=== PATIENT | female | born 1985 | race Caucasian/White ===

== ENCOUNTER 2020-07-02 23:40 | Inpatient (IN) | payer BC ==
[2020-07-03] MEDS ORDERED: Lidocaine 1.5% with EPINEPHrine 1:200,000 5 ML Amp ONE
[2020-07-03] MEDS ORDERED: Nalbuphine 10 MG/ML Syringe IVPUSH PRN (01:32)
[2020-07-03] MEDS ORDERED: Calcium Carbonate 500 MG Tab.Chew PO PRN (01:32)
[2020-07-03] MEDS ORDERED: Ondansetron 4 MG/2 ML SDV IVPUSH PRN (01:32)
[2020-07-03] MEDS ORDERED: Sodium Chloride 0.9% 10 ML Syringe FLUSH PRN (01:32)
[2020-07-03] MEDS ORDERED: Oxytocin/Lactated Ringers 10 UNIT/1,000 ML BAG IV SCH ×2 (01:45)
[2020-07-03] MEDS: Lactated Ringers 1,000 ML IV SCH ×3 (01:47→10:17)
[2020-07-03] MEDS ORDERED: diphenhydrAMINE 50 MG/ML SDV IVPUSH PRN (01:59)
[2020-07-03] MEDS ORDERED: fentaNYL 100 MCG/2 ML SDV EPIDUR PRN (01:59)
[2020-07-03] MEDS ORDERED: ePHEDrine 50 MG/ML SDV IVPUSH PRN (01:59)
--- NOTE | 2020-07-03 02:28 | PCM.PREANE ---
Preanesthetic Assessment - Procedure Proposed Procedure: Continuous labor epidural - Anesthesia/Transfusion/Family Hx Anesthesia History: No Prior Anesthesia - Review of Systems General: No Symptoms Pulmonary: No Symptoms Cardiovascular: No Symptoms Gastrointestinal: No Symptoms Neurological: No Symptoms Other: Reports: None - Physical Assessment Vital Signs: 132/85, 105, SpO2 98% RA 98.3F Height: 1.68 m Weight: 100.017 kg ASA Class: 2 Mental Status: Alert & Oriented x3 Airway Class: Mallampati = 2 Dentition: Reports: Normal Dentition Thyro-Mental Finger Breadths: 3 Mouth Opening Finger Breadths: 3 ROM/Head Extension: Full Lungs: Clear to Auscultation, Normal Respiratory Effort Cardiovascular: Regular Rate, Regular Rhythm, Murmurs - Allergies Allergies/Adverse Reactions: Allergies Allergy/AdvReac Type Severity Reaction Status Date / Time No Known Allergies Allergy Verified 07/02/20 23:54 - Acknowledgements Anesthesia Type Planned: Epidural Pt an Appropriate Candidate for the Planned Anesthesia: Yes Alternatives and Risks of Anesthesia Discussed w Pt/Guardian: Yes Pt/Guardian Understands and Agrees with Anesthesia Plan: Yes PreAnesthesia Questionnaire Cardiovascular History: Reports: Heart Murmur - HOME MEDS Home Medications: Home Meds No122/Iron/Folic Acid [ Multi Tablet] 1 tab PO DAILY 07/03/20 [History] - CURRENT (IN HOUSE) MEDS Current Meds: Current Medications Calcium Carbonate/Glycine (Tums) 1,000 mg PO Q2H PRN PRN Reason: Indigestion Diphenhydramine HCl (Benadryl) 25 mg IVPUSH Q6H PRN PRN Reason: pruritis Ephedrine Sulfate (Ephedrine Sulfate) 5 mg IVPUSH ASDIRECTED PRN PRN Reason: Hypotension Fentanyl (Sublimaze) 100 mcg EPIDUR Q3H PRN PRN Reason: Pain Fentanyl/Bupivacaine HCl (Fentanyl/Bupivacaine/Ns 2 Mcg-0.125% 100 Ml) 100 ml EPIDUR ASDIRECTED PRN PRN Reason: Pain Lactated Ringer's (Ringers, Lactated) 1,000 mls @ 100 mls/hr IV ASDIRECTED TRICIA Last Admin: 07/03/20 01:47 Dose: 100 mls/hr Documented by: Oxytocin/Lactated Ringer's (Pitocin In Lr 10 Units/1,000 Ml) 10 unit in 1,000 mls @ 12 mls/hr IV TITRATE TRICIA; Protocol Oxytocin/Lactated Ringer's (Pitocin In Lr 10 Units/1,000 Ml) 10 unit in 1,000 mls @ 100 mls/hr IV .CONTINUOUS TRICIA; Protocol Measles/Mumps/Rubella Vaccine Live (M-M-R Ii Vaccine) 0.5 ml SUBCUT .ONCE ONE Stop: 07/04/20 09:01 Nalbuphine HCl (Nubain) 10 mg IVPUSH Q2H PRN PRN Reason: Pain Ondansetron HCl (Zofran) 4 mg IVPUSH Q4H PRN PRN Reason: Nausea/Vomiting Sodium Chloride (Saline Flush) 10 ml FLUSH ASDIRECTED PRN PRN Reason: Keep Vein Open
[2020-07-03] MEDS: Bupivacaine/fentaNYL/NS 100 ML Bag EPIDUR PRN ×2 (02:33→10:17)
--- NOTE | 2020-07-03 06:24 | PCM.LDHP ---
L&D History of Present Illness - General Date of Service: 07/03/20 Admit Problem/Dx: Patient Status Order with Admit Dx/Problem 07/02/20 23:52 Patient Status [ADT] Routine 07/03/20 01:32 Patient Status [ADT] Routine Admission Diagnosis/Problem Admission Diagnosis/Problem Source of Information: Patient History Limitations: Reports: No Limitations - History of Present Illness Introduction:: Patient is a 34 y/o at 37 4/7 wks who was admitted for contractions and shortly after admission had SROM. Currently comfortable with epidural in place Pain Score: 8 - Related Data Allergies/Adverse Reactions: Allergies Allergy/AdvReac Type Severity Reaction Status Date / Time No Known Allergies Allergy Verified 07/02/20 23:54 Home Medications: Home Meds No122/Iron/Folic Acid [ Multi Tablet] 1 tab PO DAILY 07/03/20 [History] Past Medical History - Past Health History Medical/Surgical History: Denies Medical/Surgical History Social & Family History - Family History Family Medical History: Noncontributory - Tobacco Use Smoking Status *Q: Never Smoker Second Hand Smoke Exposure: No - Caffeine Use Caffeine Use: Reports: None - Alcohol Use Alcohol Use History: No - Recreational Drug Use Recreational Drug Use: No H&P Review of Systems - Review of Systems: Review Of Systems: See Below General: Reports: No Symptoms Pulmonary: Reports: No Symptoms Cardiovascular: Reports: No Symptoms Gastrointestinal: Reports: No Symptoms Genitourinary: Reports: No Symptoms Musculoskeletal: Reports: No Symptoms Psychiatric: Reports: No Symptoms Neurological: Reports: No Symptoms L&D Exam - Exam Exam: See Below - Vital Signs Vital Signs: Last Vital Signs Temp 36.8 C 07/02/20 23:52 Pulse 105 H 07/02/20 23:52 Resp 16 07/02/20 23:52 BP 132/85 07/02/20 23:52 Pulse Ox 98 07/02/20 23:52 Weight: 100.017 kg - OB Specific Contraction Intensity: Moderate to Strong Movement: Active Heart Tones: Present Heart Tones per Min: 150 Heart Rate (FHR) Variability: Moderate (6-25 bmp) Presentation: Vertex - Burnham Score Burnham Score Cervix Position: Midposition Burnham Score Consistency: Soft Burnham Score Effacement: >80% Burnham Score Dilation: > 5 cm Burnham Score Infant's Station: -1 ,0 Burnham Score Total: 11 - Exam General: Alert, Oriented, Cooperative Lungs: Clear to Auscultation, Normal Respiratory Effort Cardiovascular: Regular Rate, Regular Rhythm GI/Abdominal Exam: Soft, Non-Tender Genitourinary: Normal external exam Extremities: Normal Inspection Skin: Warm, Dry, Intact - Patient Data Lab Results Last 24 hrs: Laboratory Results - last 24 hr 07/03/20 07/03/20 Range/Units 01:45 01:49 WBC 22.38 H (3.98-10.04) K/mm3 RBC 4.24 (3.98-5.22) M/mm3 Hgb 12.3 (11.2-15.7) gm/dl Hct 36.8 (34.1-44.9) % MCV 86.8 (79.4-94.8) fl MCH 29.0 (25.6-32.2) pg MCHC 33.4 (32.2-35.5) g/dl RDW Std Deviation 43.0 (36.4-46.3) fL Plt Count 205 (182-369) K/mm3 MPV 11.1 (9.4-12.3) fl Neut % (Auto) 89.1 H (34.0-71.1) % Lymph % (Auto) 4.8 L (19.3-51.7) % [place] % (Auto) 5.6 (4.7-12.5) % Eos % (Auto) 0.1 L (0.7-5.8) Baso % (Auto) 0.1 (0.1-1.2) % Neut # (Auto) 19.93 H (1.56-6.13) K/mm3 Lymph # (Auto) 1.08 L (1.18-3.74) K/mm3 [place] # (Auto) 1.26 H (0.24-0.36) K/mm3 Eos # (Auto) 0.02 L (0.04-0.36) K/mm3 Baso # (Auto) 0.02 (0.01-0.08) K/mm3 Manual Slide Review Abnormal smear COVID-19 (DREW) Negative (NEGATIVE) Result Diagrams: 07/03/20 01:49 - Problem List (1) 37 weeks gestation of SNOMED Code(s): 95662101 ICD Code: Z3A.37 - 37 WEEKS GESTATION OF Status: Acute Current Visit: Yes (2) SROM (spontaneous rupture of membranes) SNOMED Code(s): 051818963 ICD Code: GAY4621 - Status: Acute Current Visit: Yes Problem List Initiated/Reviewed/Updated: Yes Orders Last 24hrs: Active Orders 24 hr Category Date Time Status Patient Status [ADT] Routine ADT 07/03/20 01:32 Active Activity as Tolerated [RC] PFP Care 07/03/20 01:32 Active Communication Order [RC] ASDIRECTED Care 07/03/20 01:32 Active Heart Tones [RC] ASDIRECTED Care 07/03/20 01:32 Active Notify Provider [RC] ASDIRECTED Care 07/03/20 01:59 Active Notify Provider [RC] PFP Care 07/03/20 01:32 Active Notify Provider [RC] PRN Care 07/03/20 01:32 Active Peripheral IV Care [RC] . DIRECTED Care 07/03/20 01:32 Active Urinary Catheter Assessment [RC] ASDIRECTED Care 07/03/20 01:32 Active Vaccines to be Administered [RC] PER UNIT ROUTINE Care 07/03/20 02:06 Active Vaginal Exam [RC] PRN Care 07/02/20 23:53 Active Vital Signs [RC] PER UNIT ROUTINE Care 07/02/20 23:52 Active Regular Diet [DIET] Diet 07/03/20 Breakfast Active RAPID PLASMA REAGIN,RPR [CHEM] Routine Lab 07/03/20 01:49 Received Bupivacaine/fentaNYL/NS [fentaNYL/Bupivacaine/NS 2 MCG- Med 07/03/20 01:59 Active 0.125% 100 ML] 100 ml EPIDUR ASDIRECTED PRN Calcium Carbonate [Tums] Med 07/03/20 01:32 Active 1,000 mg PO Q2H PRN Lactated Ringers [Ringers, Lactated] 1,000 ml Med 07/03/20 01:45 Active IV ASDIRECTED Measles, Mumps & Rubella [M-M-R II Vaccine] Med 07/04/20 09:00 Once 0.5 ml SUBCUT .ONCE ONE Nalbuphine [Nubain] Med 07/03/20 01:32 Active 10 mg IVPUSH Q2H PRN Ondansetron [Zofran] Med 07/03/20 01:32 Active 4 mg IVPUSH Q4H PRN Oxytocin/Lactated Ringers [Pitocin in LR 10 Units/1,000 Med 07/03/20 01:45 Active ML] 10 unit in 1,000 ml IV .CONTINUOUS Oxytocin/Lactated Ringers [Pitocin in LR 10 Units/1,000 Med 07/03/20 01:45 Active ML] 10 unit in 1,000 ml IV TITRATE Sodium Chloride 0.9% [Saline Flush] Med 07/03/20 01:32 Active 10 ml FLUSH ASDIRECTED PRN diphenhydrAMINE [Benadryl] Med 07/03/20 01:59 Active 25 mg IVPUSH Q6H PRN ePHEDrine [ePHEDrine sulfate] Med 07/03/20 01:59 Active 5 mg IVPUSH ASDIRECTED PRN fentaNYL [Sublimaze] Med 07/03/20 01:59 Active 100 mcg EPIDUR Q3H PRN Electronic Heart Tones Ext w TOCO [WOMSER] Oth 07/03/20 01:32 Ordered Routine Electronic Heart Tones Internal [WOMSER] Per Unit Ot 07/03/20 01:32 Ordered Routine Peripheral IV Insertion Adult [OM.PC] Routine Oth 07/03/20 01:32 Ordered Resuscitation Status Routine Resus Stat 07/02/20 23:52 Ordered Medication Orders Calcium Carbonate/Glycine (Tums) 1,000 mg PO Q2H PRN PRN Reason: Indigestion Diphenhydramine HCl (Benadryl) 25 mg IVPUSH Q6H PRN PRN Reason: pruritis Ephedrine Sulfate (Ephedrine Sulfate) 5 mg IVPUSH ASDIRECTED PRN PRN Reason: Hypotension Fentanyl (Sublimaze) 100 mcg EPIDUR Q3H PRN PRN Reason: Pain Last Admin: 07/03/20 02:33 Dose: 100 mcg Documented by: LAURENT Fentanyl/Bupivacaine HCl (Fentanyl/Bupivacaine/Ns 2 Mcg-0.125% 100 Ml) 100 ml EPIDUR ASDIRECTED PRN PRN Reason: Pain Last Admin: 07/03/20 02:33 Dose: 100 ml Documented by: LAURENT Lactated Ringer's (Ringers, Lactated) 1,000 mls @ 100 mls/hr IV ASDIRECTED TRICIA Last Admin: 07/03/20 02:35 Dose: 100 mls/hr Documented by: Infusion: 07/03/20 02:35 Dose: 100 mls/hr Documented by: Admin: 07/03/20 01:47 Dose: 100 mls/hr Documented by: LAURENT Oxytocin/Lactated Ringer's (Pitocin In Lr 10 Units/1,000 Ml) 10 unit in 1,000 mls @ 12 mls/hr IV TITRATE TRICIA; Protocol Oxytocin/Lactated Ringer's (Pitocin In Lr 10 Units/1,000 Ml) 10 unit in 1,000 mls @ 100 mls/hr IV .CONTINUOUS TRICIA; Protocol Measles/Mumps/Rubella Vaccine Live (M-M-R Ii Vaccine) 0.5 ml SUBCUT .ONCE ONE Stop: 07/04/20 09:01 Nalbuphine HCl (Nubain) 10 mg IVPUSH Q2H PRN PRN Reason: Pain Ondansetron HCl (Zofran) 4 mg IVPUSH Q4H PRN PRN Reason: Nausea/Vomiting Sodium Chloride (Saline Flush) 10 ml FLUSH ASDIRECTED PRN PRN Reason: Keep Vein Open Assessment/Plan Comment:: * Labs done and normal * GBS was collected 2 days ago, but results not yet available. Will defer antibiotics given full term and no risk factors * Epidural in place * Anticipate
[2020-07-03] MEDS ORDERED: Acetaminophen 325 MG Tab PO ONE (09:11)
--- NOTE | 2020-07-03 09:17 | PCM.SN.2 ---
- Free Text/Narrative Note: 0915 Patient with increasing FHR baseline. Baseline now 170. Not febrile, most recent temp was 99.6. However, as GBS unknown and concerns for tachycardia are going to treat for a chorioamnionitis like picture. Will start Ampicillin and Gentamicin. SVE just done by RN and patient is 8 cm. Will continue to work to wards vaginal delivery. Beatriz Medina MD
[2020-07-03] MEDS ORDERED: Ampicillin 2 GM in Sodium Chloride 0.9% 100 ML IV SCH (09:30)
[2020-07-03] MEDS ORDERED: Gentamicin 500 MG in Sodium Chloride 0.9% 100 ML IV ONE (10:00)
[2020-07-03] MEDS ORDERED: Misoprostol 200 MCG Tab ONE (13:25)
[2020-07-03] MEDS ORDERED: Lidocaine 1% 50 ML MDV ONE (14:00)
--- NOTE | 2020-07-03 14:16 | PCM.DEL ---
L & D Note - General Info Date of Service: 07/03/20 - Delivery Note Labor: Augmented by Oxytocin Delivery Outcome: Livebirth Delivery Method: Spontaneous Vaginal Delivery-Single Delivery Mode: Spontaneous Presentation: Right Occiput Anterior ([place]YS[place]) (compound presentation with posterior hand) Nuchal Cord: None Anesthesia Type: Epidural Amniotic Fluid Description: Meconium Stained Episiotomy Type: None Laceration: 1st Degree, Labial Suture type: Vicryl Suture size: 3-0 Placenta: Intact, Spontaneous Cord: 3 Vessels Estimated Blood Loss: 200 Resuscitation Needed: Yes [place]: Suctioned, Bulb Syringe, Stimulated, Warmed, [place] Used, Warmer Used Delivery Comments (Free Text/Narrative):: Patient found to be complete and began pushing. With maternal pushing effort head delivered from [place]YS[place] presentation. Compound presentation with posterior hand. Attempted to deliver hand through, but did not come immediately. Gentle downward traction placed on head and shoulders and body delivered. placed on maternal abdomen. Cord clamped and cut and baby taken to warmer. Cord blood collected. Placenta allowed time to separate and expelled intact. Inspection of perineum showed right labial laceration which was repaired with a running 3-0 Vicryl. - General Info Date of Service: 07/03/20 - Patient Data Vitals - Most Recent: Last Vital Signs Temp 37.6 C 07/03/20 09:20 Pulse 105 H 07/02/20 23:52 Resp 16 07/02/20 23:52 BP 132/85 07/02/20 23:52 Pulse Ox 98 07/02/20 23:52 Weight - Most Recent: 100.017 kg I&O - Last 24 Hours: Intake & Output 07/02/20 07/03/20 07/03/20 22:59 06:59 14:59 Intake Total 1000 Balance 1000 Lab Results Last 24 Hours: Laboratory Results - last 24 hr 07/03/20 07/03/20 Range/Units 01:45 01:49 WBC 22.38 H (3.98-10.04) K/mm3 RBC 4.24 (3.98-5.22) M/mm3 Hgb 12.3 (11.2-15.7) gm/dl Hct 36.8 (34.1-44.9) % MCV 86.8 (79.4-94.8) fl MCH 29.0 (25.6-32.2) pg MCHC 33.4 (32.2-35.5) g/dl RDW Std Deviation 43.0 (36.4-46.3) fL Plt Count 205 (182-369) K/mm3 MPV 11.1 (9.4-12.3) fl Neut % (Auto) 89.1 H (34.0-71.1) % Lymph % (Auto) 4.8 L (19.3-51.7) % [place] % (Auto) 5.6 (4.7-12.5) % Eos % (Auto) 0.1 L (0.7-5.8) Baso % (Auto) 0.1 (0.1-1.2) % Neut # (Auto) 19.93 H (1.56-6.13) K/mm3 Lymph # (Auto) 1.08 L (1.18-3.74) K/mm3 [place] # (Auto) 1.26 H (0.24-0.36) K/mm3 Eos # (Auto) 0.02 L (0.04-0.36) K/mm3 Baso # (Auto) 0.02 (0.01-0.08) K/mm3 Manual Slide Review Abnormal smear COVID-19 (DREW) Negative (NEGATIVE) Med Orders - Current: Current Medications Calcium Carbonate/Glycine (Tums) 1,000 mg PO Q2H PRN PRN Reason: Indigestion Diphenhydramine HCl (Benadryl) 25 mg IVPUSH Q6H PRN PRN Reason: pruritis Ephedrine Sulfate (Ephedrine Sulfate) 5 mg IVPUSH ASDIRECTED PRN PRN Reason: Hypotension Fentanyl (Sublimaze) 100 mcg EPIDUR Q3H PRN PRN Reason: Pain Last Admin: 07/03/20 02:33 Dose: 100 mcg Documented by: Fentanyl/Bupivacaine HCl (Fentanyl/Bupivacaine/Ns 2 Mcg-0.125% 100 Ml) 100 ml EPIDUR ASDIRECTED PRN PRN Reason: Pain Last Admin: 07/03/20 10:17 Dose: 100 ml Documented by: Lactated Ringer's (Ringers, Lactated) 1,000 mls @ 100 mls/hr IV ASDIRECTED TRICIA Last Admin: 07/03/20 10:17 Dose: 100 mls/hr Documented by: Oxytocin/Lactated Ringer's (Pitocin In Lr 10 Units/1,000 Ml) 10 unit in 1,000 mls @ 12 mls/hr IV TITRATE TRICIA; Protocol Last Admin: 07/03/20 10:48 Dose: 2 munits/min, 12 mls/hr Documented by: Oxytocin/Lactated Ringer's (Pitocin In Lr 10 Units/1,000 Ml) 10 unit in 1,000 mls @ 100 mls/hr IV .CONTINUOUS TRICIA; Protocol Ampicillin Sodium 2 gm/ Sodium (Chloride) 100 mls @ 200 mls/hr IV Q6H TRICIA Last Admin: 07/03/20 09:21 Dose: 200 mls/hr Documented by: Measles/Mumps/Rubella Vaccine Live (M-M-R Ii Vaccine) 0.5 ml SUBCUT .ONCE ONE Stop: 07/04/20 09:01 Nalbuphine HCl (Nubain) 10 mg IVPUSH Q2H PRN PRN Reason: Pain Ondansetron HCl (Zofran) 4 mg IVPUSH Q4H PRN PRN Reason: Nausea/Vomiting Sodium Chloride (Saline Flush) 10 ml FLUSH ASDIRECTED PRN PRN Reason: Keep Vein Open Discontinued Medications Acetaminophen (Tylenol) 975 mg PO NOW ONE Stop: 07/03/20 09:12 Last Admin: 07/03/20 09:20 Dose: 975 mg Documented by: Gentamicin Sulfate 500 mg/ (Sodium Chloride) 112.5 mls @ 112.5 mls/hr IV ONETIME ONE Stop: 07/03/20 10:59 Last Admin: 07/03/20 09:48 Dose: 112.5 mls/hr Documented by: Lidocaine HCl (Xylocaine 1%) Confirm Administered Dose 50 ml .ROUTE .STK-MED ONE Stop: 07/03/20 14:01 Misoprostol (Cytotec) Confirm Administered Dose 600 mcg .ROUTE .STK-MED ONE Stop: 07/03/20 13:26 - Problem List & Annotations (1) 37 weeks gestation of SNOMED Code(s): 70317390 Code(s): Z3A.37 - 37 WEEKS GESTATION OF Status: Acute Current Visit: Yes (2) SROM (spontaneous rupture of membranes) SNOMED Code(s): 405377959 Code(s): ASL8421 - Status: Acute Current Visit: Yes (3) Chorioamnionitis SNOMED Code(s): 36329625 Code(s): O41.1290 - CHORIOAMNIONITIS, UNSP TRIMESTER, NOT APPLICABLE OR UNSP Status: Acute Current Visit: Yes Qualifiers: Fetus number: single or unspecified fetus Trimester: third trimester Qualified Code(s): O41.1230 - Chorioamnionitis, third trimester, not applicable or unspecified - Problem List Review Problem List Initiated/Reviewed/Updated: Yes - My Orders Last 24 Hours: My Active Orders 07/02/20 23:52 Vital Signs [RC] PER UNIT ROUTINE Resuscitation Status Routine 07/02/20 23:53 Vaginal Exam [RC] PRN 07/03/20 01:32 Patient Status [ADT] Routine Activity as Tolerated [RC] PFP Communication Order [RC] ASDIRECTED Heart Tones [RC] ASDIRECTED Notify Provider [RC] PFP Notify Provider [RC] PRN Peripheral IV Care [RC] . DIRECTED Urinary Catheter Assessment [RC] ASDIRECTED Calcium Carbonate [Tums] 1,000 mg PO Q2H PRN Nalbuphine [Nubain] 10 mg IVPUSH Q2H PRN Ondansetron [Zofran] 4 mg IVPUSH Q4H PRN Sodium Chloride 0.9% [Saline Flush] 10 ml FLUSH ASDIRECTED PRN Electronic Heart Tones Ext w TOCO [WOMSER] Routine Electronic Heart Tones Internal [WOMSER] Per Unit Routine Peripheral IV Insertion Adult [OM.PC] Routine 07/03/20 01:45 Lactated Ringers [Ringers, Lactated] 1,000 ml IV ASDIRECTED Oxytocin/Lactated Ringers [Pitocin in LR 10 Units/1,000 ML] 10 unit in 1,000 ml IV .CONTINUOUS Oxytocin/Lactated Ringers [Pitocin in LR 10 Units/1,000 ML] 10 unit in 1,000 ml IV TITRATE 07/03/20 01:49 RAPID PLASMA REAGIN,RPR [CHEM] Routine 07/03/20 02:06 Vaccines to be Administered [RC] PER UNIT ROUTINE 07/03/20 Breakfast Regular Diet [DIET] 07/03/20 09:30 Ampicillin 2 gm Sodium Chloride 0.9% [Normal Saline] 100 ml IV Q6H 07/04/20 09:00 Measles, Mumps & Rubella [M-M-R II Vaccine] 0.5 ml SUBCUT .ONCE ONE - Assessment Assessment:: PPD#0 - Plan Plan:: * Routine cares * GBS did return negative. Will discontinue antibiotics for chorioamnionitis as did have vaginal delivery * Encourage breast feeding * Discharge home in 1-2 days
[2020-07-03] MEDS ORDERED: Misoprostol 200 MCG Tab PO STA (14:22)
[2020-07-03] MEDS ORDERED: Benzocaine/Menthol 20%-0.5% Spray 56 GM Canister TOP PRN (15:28)
[2020-07-03] MEDS ORDERED: Docusate Sodium 100 MG Cap PO PRN (15:28)
[2020-07-03] MEDS ORDERED: Acetaminophen 325 MG Tab PO PRN (15:28)
[2020-07-03] MEDS ORDERED: Witch Hazel Medicated Pads 40/Jar TOP PRN (15:28)
[2020-07-03] MEDS: Ibuprofen 600 MG Tab PO PRN (17:58)
[2020-07-04] MEDS: Ibuprofen 600 MG Tab PO PRN ×2 (02:17→12:11)
--- NOTE | 2020-07-04 08:27 | PCM.PNPP ---
- General Info Date of Service: 07/04/20 Functional Status: Reports: Pain Controlled - Review of Systems General: Reports: No Symptoms HEENT: Reports: No Symptoms Pulmonary: Reports: No Symptoms Cardiovascular: Reports: No Symptoms Gastrointestinal: Reports: No Symptoms Genitourinary: Reports: No Symptoms Musculoskeletal: Reports: No Symptoms Skin: Reports: No Symptoms Neurological: Reports: No Symptoms Psychiatric: Reports: No Symptoms - Patient Data Vital Signs - Most Recent: Last Vital Signs Temp 36.3 C 07/04/20 04:27 Pulse 75 07/04/20 04:27 Resp 15 07/04/20 04:27 BP 116/61 07/04/20 04:27 Pulse Ox 99 07/04/20 04:27 Weight - Most Recent: 100.017 kg I&O - Last 24 Hours: Intake & Output 07/03/20 07/04/20 07/04/20 22:59 06:59 14:59 Intake Total 3200 Balance 3200 Lab Results - Last 24 Hours: Laboratory Results - last 24 hr 07/03/20 Range/Units 01:49 RPR Non-reactive (NONREACTIVE) Med Orders - Current: Current Medications Acetaminophen (Tylenol) 650 mg PO Q4H PRN PRN Reason: mild pain or fever Benzocaine/Menthol (Dermoplast Pain Relief [place]) 0 gm TOP ASDIRECTED PRN PRN Reason: Perineal Comfort Measure Last Admin: 07/03/20 17:58 Dose: 1 canister Documented by: Docusate Sodium (Colace) 100 mg PO BID PRN PRN Reason: Constipation Ibuprofen (Motrin) 600 mg PO Q6H PRN PRN Reason: Mild pain or fever Last Admin: 07/04/20 02:17 Dose: 600 mg Documented by: Lavonne Dickinosn (Cathleen) 1 pad TOP ASDIRECTED PRN PRN Reason: Perineal Comfort Measure Last Admin: 07/03/20 17:58 Dose: 1 container Documented by: Discontinued Medications Acetaminophen (Tylenol) 975 mg PO NOW ONE Stop: 07/03/20 09:12 Last Admin: 07/03/20 09:20 Dose: 975 mg Documented by: Calcium Carbonate/Glycine (Tums) 1,000 mg PO Q2H PRN PRN Reason: Indigestion Diphenhydramine HCl (Benadryl) 25 mg IVPUSH Q6H PRN PRN Reason: pruritis Ephedrine Sulfate (Ephedrine Sulfate) 5 mg IVPUSH ASDIRECTED PRN PRN Reason: Hypotension Fentanyl (Sublimaze) 100 mcg EPIDUR Q3H PRN PRN Reason: Pain Last Admin: 07/03/20 02:33 Dose: 100 mcg Documented by: Fentanyl/Bupivacaine HCl (Fentanyl/Bupivacaine/Ns 2 Mcg-0.125% 100 Ml) 100 ml EPIDUR ASDIRECTED PRN PRN Reason: Pain Last Admin: 07/03/20 10:17 Dose: 100 ml Documented by: Lactated Ringer's (Ringers, Lactated) 1,000 mls @ 100 mls/hr IV ASDIRECTED TRICIA Last Admin: 07/03/20 10:17 Dose: 100 mls/hr Documented by: Oxytocin/Lactated Ringer's (Pitocin In Lr 10 Units/1,000 Ml) 10 unit in 1,000 mls @ 12 mls/hr IV TITRATE TRICIA; Protocol Last Titration: 07/03/20 12:15 Dose: 6 munits/min, 36 mls/hr Documented by: Oxytocin/Lactated Ringer's (Pitocin In Lr 10 Units/1,000 Ml) 10 unit in 1,000 mls @ 100 mls/hr IV .CONTINUOUS TRICIA; Protocol Ampicillin Sodium 2 gm/ Sodium (Chloride) 100 mls @ 200 mls/hr IV Q6H TRICIA Last Admin: 07/03/20 09:21 Dose: 200 mls/hr Documented by: Gentamicin Sulfate 500 mg/ (Sodium Chloride) 112.5 mls @ 112.5 mls/hr IV ONETIME ONE Stop: 07/03/20 10:59 Last Admin: 07/03/20 09:48 Dose: 112.5 mls/hr Documented by: Lidocaine HCl (Xylocaine 1%) Confirm Administered Dose 50 ml .ROUTE .STK-MED ONE Stop: 07/03/20 14:01 Last Admin: 07/03/20 14:00 Dose: 50 ml Documented by: Measles/Mumps/Rubella Vaccine Live (M-M-R Ii Vaccine) 0.5 ml SUBCUT .ONCE ONE Stop: 07/04/20 09:01 Misoprostol (Cytotec) Confirm Administered Dose 600 mcg .ROUTE .STK-MED ONE Stop: 07/03/20 13:26 Last Admin: 07/03/20 13:57 Dose: 600 mcg Documented by: Misoprostol (Cytotec) 600 mcg PO NOW STA Stop: 07/03/20 14:23 Last Admin: 07/03/20 17:53 Dose: Not Given Documented by: Nalbuphine HCl (Nubain) 10 mg IVPUSH Q2H PRN PRN Reason: Pain Ondansetron HCl (Zofran) 4 mg IVPUSH Q4H PRN PRN Reason: Nausea/Vomiting Sodium Chloride (Saline Flush) 10 ml FLUSH ASDIRECTED PRN PRN Reason: Keep Vein Open - Interaction Disposition, : [place] to Nursery Support Person: - Recovery Exam Fundal Tone: Firm Fundal Level: 1 Fingerbreadths Below Umbilicus Fundal Placement: Midline Lochia Amount: Small Lochia Color: Rubra/Red Perineum Description: Intact, Minimal Bruising/Swelling, Other (see below) Other Perinuem Description: first degree with repair Episiotomy/Laceration: None Bladder Status: Nonpalpable, Voiding Urinary Elimination: Voided - Exam General: Alert, Oriented HEENT: Pupils Equal Neck: Supple Lungs: Clear to Auscultation, Normal Respiratory Effort Cardiovascular: Regular Rate, Regular Rhythm GI/Abdominal Exam: Normal Bowel Sounds, Soft, Non-Tender, No Organomegaly Skin: Warm, Dry, Intact Wound/Incisions: Healing Well Neurological: No New Focal Deficit Psy/Mental Status: Alert, Normal Affect, Normal Mood - Problem List Review Problem List Initiated/Reviewed/Updated: Yes - Assessment Assessment:: PPD#1 Doing well Routine care. Home tomorrow - Plan Plan:: * Routine cares * GBS did return negative. Will discontinue antibiotics for chorioamnionitis as did have vaginal delivery * Encourage breast feeding * Discharge home in 1-2 days
[2020-07-04] MEDS ORDERED: Measles, Mumps & Rubella Vaccine 0.5 ML SDV SUBCUT ONE (09:00)
--- NOTE | 2020-07-04 12:05 | PCM48HPAN ---
Post Anesthesia Note - EVALUATION WITHIN 48HRS OF ANESTHETIC Vital Signs in Normal Range: Yes Patient Participated in Evaluation: Yes Respiratory Function Stable: Yes Airway Patent: Yes Cardiovascular Function Stable: Yes Hydration Status Stable: Yes Pain Control Satisfactory: Yes Nausea and Vomiting Control Satisfactory: Yes Mental Status Recovered: Yes Vital Signs: Last Vital Signs Temp 97.3 F 07/04/20 04:27 Pulse 75 07/04/20 04:27 Resp 15 07/04/20 04:27 BP 116/61 07/04/20 04:27 Pulse Ox 99 07/04/20 04:27 - COMMENTS/OBSERVATIONS Free Text/Narrative:: Patient is on her day 1. Stated understanding about possible backaches following epidural anesthesia. Mentions having no back soreness at this time. Explanation given about importance of avoiding back straining. Denies any headache or lightheadedness at this time. Comfortable now. Ambulating, no difficulty urinating.
--- NOTE | 2020-07-05 07:39 | PCM.DCSUM1 ---
Discharge Summary - Hospital Course Diagnosis: Stroke: No - Discharge Data Discharge Date: 07/05/20 Discharge Disposition: Home, Self-Care 01 Condition: Good - Referral to Home Health Primary Care Physician: Beatriz Medina MD - Patient Instructions Diet: Usual Diet as Tolerated Activity: No Strenuous Activities Driving: May Drive Today Notify Provider of: Fever, Increased Pain, Swelling and Redness, Drainage, Nausea and/or Vomiting - Discharge Plan *PRESCRIPTION DRUG MONITORING PROGRAM REVIEWED*: No *COPY OF PRESCRIPTION DRUG MONITORING REPORT IN PATIENT LARISSA: No Home Medications: Home Meds No122/Iron/Folic Acid [ Multi Tablet] 1 tab PO DAILY 07/03/20 [History] Patient Handouts: Chorioamnionitis, Early Elective Referrals: Beatriz Medina MD [Primary Care Provider] - (2 weeks) - Discharge Summary/Plan Comment DC Time >30 min.: No - General Info Date of Service: 07/05/20 Functional Status: Reports: Pain Controlled - Review of Systems General: Reports: No Symptoms HEENT: Reports: No Symptoms Pulmonary: Reports: No Symptoms Cardiovascular: Reports: No Symptoms Gastrointestinal: Reports: No Symptoms Genitourinary: Reports: No Symptoms Musculoskeletal: Reports: No Symptoms Skin: Reports: No Symptoms Neurological: Reports: No Symptoms Psychiatric: Reports: No Symptoms - Patient Data Vitals - Most Recent: Last Vital Signs Temp 36.4 C 07/05/20 02:21 Pulse 76 07/05/20 02:21 Resp 14 07/05/20 02:21 BP 123/69 07/05/20 02:21 Pulse Ox 97 07/05/20 02:21 Weight - Most Recent: 100.017 kg Med Orders - Current: Current Medications Acetaminophen (Tylenol) 650 mg PO Q4H PRN PRN Reason: mild pain or fever Benzocaine/Menthol (Dermoplast Pain Relief Carter) 0 gm TOP ASDIRECTED PRN PRN Reason: Perineal Comfort Measure Last Admin: 07/03/20 17:58 Dose: 1 canister Documented by: Docusate Sodium (Colace) 100 mg PO BID PRN PRN Reason: Constipation Ibuprofen (Motrin) 600 mg PO Q6H PRN PRN Reason: Mild pain or fever Last Admin: 07/04/20 12:11 Dose: 600 mg Documented by: Witch Teena (Tucks) 1 pad TOP ASDIRECTED PRN PRN Reason: Perineal Comfort Measure Last Admin: 07/03/20 17:58 Dose: 1 container Documented by: Discontinued Medications Acetaminophen (Tylenol) 975 mg PO NOW ONE Stop: 07/03/20 09:12 Last Admin: 07/03/20 09:20 Dose: 975 mg Documented by: Calcium Carbonate/Glycine (Tums) 1,000 mg PO Q2H PRN PRN Reason: Indigestion Diphenhydramine HCl (Benadryl) 25 mg IVPUSH Q6H PRN PRN Reason: pruritis Ephedrine Sulfate (Ephedrine Sulfate) 5 mg IVPUSH ASDIRECTED PRN PRN Reason: Hypotension Fentanyl (Sublimaze) 100 mcg EPIDUR Q3H PRN PRN Reason: Pain Last Admin: 07/03/20 02:33 Dose: 100 mcg Documented by: Fentanyl/Bupivacaine HCl (Fentanyl/Bupivacaine/Ns 2 Mcg-0.125% 100 Ml) 100 ml EPIDUR ASDIRECTED PRN PRN Reason: Pain Last Admin: 07/03/20 10:17 Dose: 100 ml Documented by: Lactated Ringer's (Ringers, Lactated) 1,000 mls @ 100 mls/hr IV ASDIRECTED TRICIA Last Admin: 07/03/20 10:17 Dose: 100 mls/hr Documented by: Oxytocin/Lactated Ringer's (Pitocin In Lr 10 Units/1,000 Ml) 10 unit in 1,000 mls @ 12 mls/hr IV TITRATE TRICIA; Protocol Last Titration: 07/03/20 12:15 Dose: 6 munits/min, 36 mls/hr Documented by: Oxytocin/Lactated Ringer's (Pitocin In Lr 10 Units/1,000 Ml) 10 unit in 1,000 mls @ 100 mls/hr IV .CONTINUOUS TRICIA; Protocol Ampicillin Sodium 2 gm/ Sodium (Chloride) 100 mls @ 200 mls/hr IV Q6H TRICIA Last Admin: 07/03/20 09:21 Dose: 200 mls/hr Documented by: Gentamicin Sulfate 500 mg/ (Sodium Chloride) 112.5 mls @ 112.5 mls/hr IV ONETIME ONE Stop: 07/03/20 10:59 Last Admin: 07/03/20 09:48 Dose: 112.5 mls/hr Documented by: Lidocaine HCl (Xylocaine 1%) Confirm Administered Dose 50 ml .ROUTE .STK-MED ONE Stop: 07/03/20 14:01 Last Admin: 07/03/20 14:00 Dose: 50 ml Documented by: Measles/Mumps/Rubella Vaccine Live (M-M-R Ii Vaccine) 0.5 ml SUBCUT .ONCE ONE Stop: 07/04/20 09:01 Misoprostol (Cytotec) Confirm Administered Dose 600 mcg .ROUTE .STK-MED ONE Stop: 07/03/20 13:26 Last Admin: 07/03/20 13:57 Dose: 600 mcg Documented by: Misoprostol (Cytotec) 600 mcg PO NOW STA Stop: 07/03/20 14:23 Last Admin: 07/03/20 17:53 Dose: Not Given Documented by: Nalbuphine HCl (Nubain) 10 mg IVPUSH Q2H PRN PRN Reason: Pain Ondansetron HCl (Zofran) 4 mg IVPUSH Q4H PRN PRN Reason: Nausea/Vomiting Sodium Chloride (Saline Flush) 10 ml FLUSH ASDIRECTED PRN PRN Reason: Keep Vein Open - Exam General: Reports: Alert, Oriented HEENT: Reports: Pupils Equal, Pupils Reactive, EOMI, Mucous Membr. Moist/[place] Neck: Reports: Supple Lungs: Reports: Clear to Auscultation, Normal Respiratory Effort Cardiovascular: Reports: Regular Rate, Regular Rhythm GI/Abdominal Exam: Normal Bowel Sounds, Soft, Non-Tender, No Organomegaly, No Distention, No Abnormal Bruit, No Mass, Pelvis Stable Rectal (Female) Exam: Normal Exam, Normal Rectal Tone Back Exam: Reports: Normal Inspection, Full Range of Motion Extremities: Normal Inspection, Normal Range of Motion, Non-Tender, No Pedal Edema, Normal Capillary Refill Skin: Reports: Warm, Dry, Intact Wound/Incisions: Reports: Healing Well Neurological: Reports: No New Focal Deficit Psy/Mental Status: Reports: Alert, Normal Affect, Normal Mood
[2020-07-05] MEDS ORDERED: Measles, Mumps & Rubella Vaccine 0.5 ML SDV SUBCUT ONE (15:19)
== END 2020-07-05 15:45 | disposition home or self-care (01) | DRG 560 ==
LOC: JD.OBCHECK 23:40 → JD.OB 23:45 → JD.OBCHECK 07-03 01:32 → JD.OB 07-03 01:51 → OBSVTOIN 07-03 13:45 → JD.OB 07-03 13:46
PROVIDERS: ADMIT Obstetrics & Gynecology; ATTEND Obstetrics & Gynecology
PROC: 10E0XZZ Delivery of Products of Conception, External Approach (ICD-10-PCS; principal; 2020-07-03)
PROC: 0HQ9XZZ Repair Perineum Skin, External Approach (ICD-10-PCS; 2020-07-03)
PROC: 3E0R3BZ Introduction of Anesthetic Agent into Spinal Canal, Percutaneous Approach (ICD-10-PCS; 2020-07-03)
PROC: 3E0234Z Introduction of Serum, Toxoid and Vaccine into Muscle, Percutaneous Approach (ICD-10-PCS; 2020-07-05)
DX: O77.0 Labor and delivery complicated by meconium in amniotic fluid (principal); Z3A.37 37 weeks gestation of pregnancy; Z37.0 Single live birth; O70.0 First degree perineal laceration during delivery; O41.1230 Chorioamnionitis, third trimester, not applicable or unspecified; Z20.828 Contact with and (suspected) exposure to other viral communicable diseases; Z23 Encounter for immunization
CPT/HCPCS: 01967; 36415; 51702; 59025; 59409; 85025; 86592; 90471; 90707; A9270-GY; J0290; J1580; J2001; J2590; J3010; J7050; J7120; U0002

== ENCOUNTER 2022-04-15 20:17 | Inpatient (IN) | payer BC ==
[2022-04-15] MEDS ORDERED: Sodium Chloride 0.9% 10 ML Syringe FLUSH PRN (21:54)
[2022-04-15] MEDS ORDERED: Ondansetron 4 MG/2 ML SDV IVPUSH PRN (21:54)
[2022-04-15] MEDS ORDERED: Nalbuphine HCl 10 MG/ 1ML Amp IVPUSH PRN (21:54)
[2022-04-15] MEDS ORDERED: Oxytocin/Lactated Ringers 10 UNIT/1,000 ML BAG IV SCH ×2 (22:00)
[2022-04-15] MEDS: Lactated Ringers 1,000 ML IV SCH ×2 (22:05→23:35)
[2022-04-15] MEDS ORDERED: Bupivacaine/fentaNYL/NS 100 ML Bag EPIDUR PRN (22:25)
[2022-04-15] MEDS ORDERED: fentaNYL 100 MCG/2 ML SDV EPIDUR PRN (22:25)
[2022-04-15] MEDS ORDERED: ePHEDrine 50 MG/ML SDV IVPUSH PRN (22:25)
[2022-04-15] MEDS ORDERED: diphenhydrAMINE 50 MG/ML SDV IVPUSH PRN (22:25)
[2022-04-16] MEDS ORDERED: Bupivacaine 0.25% 10 ML SDV ONE
[2022-04-16] MEDS: Lactated Ringers 1,000 ML IV SCH (00:59)
[2022-04-16] MEDS ORDERED: fentaNYL 100 MCG/2 ML SDV ONE (04:10)
[2022-04-16] MEDS ORDERED: cefOXitin 1 GM in Premix Bag 1 BAG IV ONE (04:37)
[2022-04-16] MEDS ORDERED: Sodium Chloride 0.9% 10 ML Syringe FLUSH SCH (09:00)
[2022-04-16] MEDS: Ibuprofen 600 MG Tab PO PRN (13:19)
[2022-04-16] MEDS ORDERED: Docusate Sodium 100 MG Cap PO PRN (19:19)
[2022-04-16] MEDS ORDERED: Acetaminophen 325 MG Tab PO PRN (19:19)
[2022-04-16] MEDS ORDERED: Benzocaine/Menthol 20%-0.5% Spray 78 GM Cannister TOP PRN (19:19)
[2022-04-16] MEDS ORDERED: Witch Hazel Medicated Pads 40/Jar TOP PRN (19:19)
[2022-04-17] MEDS: Ibuprofen 600 MG Tab PO PRN (08:01)
== END 2022-04-17 10:35 | disposition home or self-care (01) | DRG 560 ==
LOC: JD.OBCHECK 20:17 → JD.OB 20:23 → JD.OBCHECK 20:38 → JD.OB 20:39 → OBSVTOIN 04-16 19:15
PROVIDERS: ADMIT Obstetrics & Gynecology; ATTEND Obstetrics & Gynecology
PROC: 10E0XZZ Delivery of Products of Conception, External Approach (ICD-10-PCS; principal; 2022-04-16)
PROC: 10907ZC Drainage of Amniotic Fluid, Therapeutic from Products of Conception, Via Natural or Artificial Opening (ICD-10-PCS; 2022-04-16)
PROC: 3E0R3BZ Introduction of Anesthetic Agent into Spinal Canal, Percutaneous Approach (ICD-10-PCS; 2022-04-16)
PROC: 00HU33Z Insertion of Infusion Device into Spinal Canal, Percutaneous Approach (ICD-10-PCS; 2022-04-16)
DX: O80 Encounter for full-term uncomplicated delivery (principal); Z3A.39 39 weeks gestation of pregnancy; Z37.0 Single live birth
CPT/HCPCS: 36415; 51702; 59025; 59409; 85025; 86592; 86850; 86900; 86901; A9270-GY; J0694; J2590; J3010; J3490; J7120

== ENCOUNTER 2024-11-17 15:29 | Inpatient (IN) | payer BC ==
[~2024-11-17 15:29] MED LIST: Sodium Chloride 0.9% 10 ML SDV ONE
[2024-11-17] MEDS ORDERED: Ondansetron 4 MG/2 ML SDV IVPUSH PRN (16:43)
[2024-11-17] MEDS ORDERED: Sodium Chloride 0.9% 10 ML Syringe FLUSH PRN (16:43)
[2024-11-17] MEDS ORDERED: Lidocaine 1% 50 ML MDV INJECT PRN (16:43)
[2024-11-17] MEDS ORDERED: Nalbuphine 10 MG/1 ML Vial IVPUSH PRN (16:43)
[2024-11-17 17:03] LABS: BASOPHILS PERCENT AUTO 0.2 % (0.0-1.0); EOSINOPHILS ABSOLUTE AUTO 0.1 K/mm3 (0.0-0.4); EOSINOPHILS PERCENT AUTO 1.1 % (0.0-6.0); HEMATOCRIT 37.5 % (37.0-47.0); HEMOGLOBIN 12.4 gm/dl (12.0-16.0); IMMATURE GRAN ABSOLUTE AUTO 0.07 K/mm3 (0.00-0.05); IMMATURE GRAN PERCENT AUTO 0.6 % (0.0-0.4); LYMPHOCYTES ABSOLUTE AUTO 1.6 K/mm3 (1.0-4.8); LYMPHOCYTES PERCENT AUTO 14.2 % (24.0-44.0); MEAN CORPUSCULAR HEMOGLOBIN 28.6 pg (28.0-32.0); MEAN CORPUSCULAR HGB CONC 33.1 g/dl (32.0-36.0); MEAN CORPUSCULAR VOLUME 86.6 fl (83.0-99.0); MEAN PLATELET VOLUME 10.8 fl (9.4-12.3); MONOCYTES ABSOLUTE AUTO 0.8 K/mm3 (0.0-0.8); MONOCYTES PERCENT AUTO 6.6 % (0.0-8.0); NEUTROPHILS ABSOLUTE AUTO 8.8 K/mm3 (1.8-7.7); NEUTROPHILS PERCENT AUTO 77.3 % (41.0-71.0); PLATELET COUNT,PLT 197 K/mm3 (150-400); RED BLOOD CELL COUNT 4.33 M/mm3 (4.10-5.30); WHITE BLOOD CELL COUNT,WBC 11.44 K/mm3 (3.9-11.3)
[2024-11-17] MEDS: Lactated Ringers 1,000 ML IV SCH (17:16)
[2024-11-17] MEDS: Oxytocin/0.9 % Sodium Chloride 30 UNIT/500 ML BAG IV SCH (17:16)
[2024-11-17 17:35] LABS: CREATININE 0.6 mg/dL (0.55-1.02); EST CRCL DRUG DOSING (CG) 124.84 mL/min; URIC ACID 4.7 mg/dL (2.6-6.0)
[2024-11-17] MEDS ORDERED: ePHEDrine 50 MG/ML SDV IVPUSH PRN (19:34)
[2024-11-17] MEDS ORDERED: diphenhydrAMINE 50 MG/ML SDV IVPUSH PRN (19:34)
[2024-11-17] MEDS: fentaNYL 100 MCG/2 ML SDV EPIDUR PRN (19:40)
[2024-11-17] MEDS: Bupivacaine/fentaNYL/NS 100 ML Bag EPIDUR PRN (19:47)
[2024-11-17 19:57] LABS: CREATININE,URINE RAND 44.3 mg/dL (30.0-125.0); PROTEIN CREATININE RATIO,URINE 221.2 mg/g (0-149); PROTEIN,URINE RANDOM 9.8 mg/dL (0.0-11.8)
[2024-11-18] MEDS ORDERED: Oxytocin/0.9 % Sodium Chloride 30 UNIT/500 ML BAG IV SCH (05:23)
[2024-11-18] MEDS ORDERED: Hydrocortisone Acetate 25 MG Supp RECTAL PRN (05:23)
[2024-11-18] MEDS ORDERED: Magnesium Hydroxide 400 MG/5 ML Susp 30 ML Cup PO PRN (05:23)
[2024-11-18] MEDS ORDERED: Simethicone 80 MG Tab.Chew PO PRN (05:23)
[2024-11-18] MEDS ORDERED: Benzocaine/Menthol 20%-0.5% Spray 78 GM Cannister TOP PRN (05:23)
[2024-11-18] MEDS ORDERED: Acetaminophen 325 MG Tab PO PRN (05:23)
[2024-11-18] MEDS ORDERED: Docusate Sodium 100 MG Cap PO PRN (05:23)
[2024-11-18] MEDS ORDERED: Witch Hazel Medicated Pads 40/Jar TOP PRN (05:23)
[2024-11-18] MEDS: Ibuprofen 600 MG Tab PO SCH (05:47)
[2024-11-18] MEDS ORDERED: Prenatal Multivitamin with Calcium/Folic Acid/Iron Tab PO SCH (09:00)
[2024-11-18] MEDS: Sodium Chloride 0.9% 10 ML Syringe FLUSH SCH (16:09)
== END 2024-11-19 12:19 | disposition home or self-care (01) | DRG 560 ==
LOC: JD.OBCHECK 15:29 → JD.OB 15:29 → JD.OBCHECK 19:23 → JD.OB 19:24 → OBSVTOIN 11-18 04:05 → JD.OB 11-18 04:05
PROVIDERS: ADMIT Obstetrics & Gynecology; ATTEND Obstetrics & Gynecology
PROC: 10D07Z6 Extraction of Products of Conception, Vacuum, Via Natural or Artificial Opening (ICD-10-PCS; principal; 2024-11-18)
PROC: 3E0R3BZ Introduction of Anesthetic Agent into Spinal Canal, Percutaneous Approach (ICD-10-PCS; 2024-11-18)
PROC: 0HQ9XZZ Repair Perineum Skin, External Approach (ICD-10-PCS; 2024-11-18)
PROC: 10907ZC Drainage of Amniotic Fluid, Therapeutic from Products of Conception, Via Natural or Artificial Opening (ICD-10-PCS; 2024-11-18)
DX: O66.0 Obstructed labor due to shoulder dystocia (principal); Z3A.40 40 weeks gestation of pregnancy; O70.0 First degree perineal laceration during delivery; Z37.0 Single live birth
CPT/HCPCS: 36415; 51701; 59025; 59409; 82565; 82570; 83615; 84112; 84156; 84450; 84460; 84520; 84550; 85025; 86592; A9270-GY; C1758; J3010; J3490; J7120; J7999